=== PATIENT | male | born 1945 | race Caucasian/White ===

== ENCOUNTER 2019-08-15 12:14 | Outpatient (CLI) | payer BC ==
--- NOTE | 2019-08-15 13:22 | ULT ---
BILATERAL CAROTID DUPLEX ULTRASOUND: HISTORY: Right-sided carotid bruit TECHNIQUE: Grayscale, color-flow and spectral Doppler ultrasound imaging of the extracranial carotid artery syst ems was performed bilaterally. FINDINGS: There is plaque formation in the carotid bulbs and proximal ICAs. The peak systolic velocity in the right ICA measures 128 cm/s with an end-diastolic velocity of 30 cm /s and a systolic ratio of 0.72. The peak systolic velocity in the left ICA measures 140 cm/s with an end-diastolic velocity of 33 cm/s and a systolic ratio of 0.82. Flow in both vertebral arteries remains antegrade. 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
== END 2019-08-15 12:15 | disposition home or self-care (01) ==
LOC: BICULT 12:14
PROVIDERS: ATTEND Family Medicine
DX: R09.89 Other specified symptoms and signs involving the circulatory and respiratory systems (principal); I65.23 Occlusion and stenosis of bilateral carotid arteries
CPT/HCPCS: 93880

== ENCOUNTER 2019-08-28 07:14 | Outpatient (CLI) | payer BC ==
--- NOTE | 2019-08-28 09:52 | MRI ---
MRI BRAIN WITHOUT CONTRAST: Date: 08/28/2019 HISTORY: Hearing loss. FINDINGS: Absence of IV contrast reduces the sensitivity of exam, particularly to evaluate for masses and abnor mal nerve enhancement. There are a few foci of T2 prolongation in the periventricular white matter consistent with mild [employer]accarat [employer] yann small vessel ischemic disease. No restricted diffusion is seen. No blood products are noted on th e gradient echo sequences. The noncontrasted high resolution images of the IACs demonstrate no defini te mass. No evidence of acute infarct, hemorrhage, midline shift, or abnormal extra-axial fluid colle ctions are seen. The visualized paranasal sinuses and mastoid air cells are well aerated. The ventric ular size is appropriate and the basilar cisterns are patent. IMPRESSION: No evidence of acute intracranial process. POS: [facility]
== END 2019-08-28 07:15 | disposition home or self-care (01) ==
LOC: BICMRI 07:14
PROVIDERS: ATTEND Family Medicine
DX: H91.92 Unspecified hearing loss, left ear (principal)
CPT/HCPCS: 70551